=== PATIENT | male | born 1960 | race Caucasian/White ===

== ENCOUNTER 2019-10-02 09:32 | Inpatient (IN) | payer MEDICAID, OTHER ==
[~2019-10-02] VITALS: Ht 172.7 cm; Wt 94.8 kg
--- NOTE | 2019-10-02 09:35 | NUR ---
Dr. Conde at bedside for MSE
[2019-10-02 10:02] LABS: BASOPHILS # (AUTO) 0.1 K/uL (0.0-8.0); BASOPHILS % (AUTO) 0.9 % (0.0-2.0); EOSINOPHILS # (AUTO) 0.2 K/uL (0.0-0.7); EOSINOPHILS % (AUTO) 1.9 % (0.0-7.0); HEMOGLOBIN 15.4 g/dL (12.5-16.3); LYMPHOCYTES % (AUTO) 21.7 % (20.5-51.5); MEAN CORPUSCULAR HEMOGLOBIN 33.5 uug (23.8-33.4); MEAN CORPUSCULAR HGB CONC 34 g/dL (32.5-36.3); MEAN CORPUSCULAR VOLUME 97.7 fL (73.0-96.2); MONOCYTES # (AUTO) 1.2 K/uL (2.0-10.0); MONOCYTES % (AUTO) 12.7 % (0.0-11.0); NEUTROPHILS # (AUTO) 5.9 K/uL (1.8-8.9); NEUTROPHILS % (AUTO) 62.8 % (38.5-71.5); PLATELET COUNT (AUTO) 81 K/uL (152-348); WHITE BLOOD COUNT (AUTO) 9.3 K/uL (3.6-10.2)
[2019-10-02] MEDS ORDERED: BUPR-51 PO (10:02)
[2019-10-02] MEDS ORDERED: INSU100I26 SQ (10:02)
[2019-10-02] MEDS ORDERED: SPIR100T5 PO (10:02)
[2019-10-02] MEDS ORDERED: DEXA4TAB PO (10:02)
[2019-10-02] MEDS ORDERED: ASCO500C18 PO (10:02)
[2019-10-02] MEDS ORDERED: CYAN100T44 PO (10:02)
[2019-10-02] MEDS ORDERED: NITR50CA PO (10:02)
[2019-10-02] MEDS ORDERED: CHOL10002 PO (10:02)
[2019-10-02] MEDS ORDERED: ZINC1CAP2 PO (10:02)
[2019-10-02] MEDS ORDERED: ALBU0.63 IH (10:02)
[2019-10-02 10:09] LABS: *BILIRUBIN,URIN NEGATIVE (NEGATIVE); *CLARITY,URINE CLEAR (CLEAR); *COLOR,URINE YELLOW (YELLOW); *KETONES,URINE NEGATIVE (NEGATIVE); *UROBILINOGEN,URINE 0.2 E.U./dl (NORMAL); LEUKOCYTE ESTERASE ,URINE NEGATIVE (NEGATIVE); NITRITE, URINE NEGATIVE (NEGATIVE); PH,URINE 5.5 (5.0-8.0)
[2019-10-02 10:13] LABS: *BLOOD, URINE TRACE (NEGATIVE); UGLUCOSE 2+ (NEGATIVE)
[2019-10-02 10:14] LABS: BILIRUBIN,TOTAL 2.6 mg/dL (0.2-1.0); CREATININE 1.2 mg/dL (0.6-1.3); POTASSIUM 5.1 mmol/L (3.5-5.1); TOTAL PROTEIN, SERUM 6.6 g/dL (6.4-8.2)
--- NOTE | 2019-10-02 11:10 | NUR ---
Radiologist Dr. Collins at bedside to do procedure
--- NOTE | 2019-10-02 11:55 | NUR ---
Patient tolerated procedure well. Able to aspirate 4200ml of yellow cloudy fluid. Patient states "I feel much better". Denies any pain or discomfort at this time. no bleeding noted around the site.
[2019-10-02] MEDS ORDERED: CEFTRIAXONE 1 G VIAL IM ONE (12:30)
[2019-10-02] MEDS ORDERED: CEFTRIAXONE /D5W 50ML IVPB **ER PYXIS IV ONE (12:30)
[2019-10-02] MEDS ORDERED: IV NS 1000 ML 1,000 ML IV ONE (12:30)
[2019-10-02 12:44] LABS: BACTERIA,URINE NONE SEEN /HPF (NONE SEEN); RBC,URINE 0-3 /HPF (0-3); SQUAMOUS EPITHELIAL CELL,UR FEW /HPF (NONE SEEN); WBC,URINE 0-3 /HPF (0-3)
[2019-10-02] MEDS ORDERED: DEXTROSE 50% 50 ML DISP.SYRIN IV PRN (15:30)
[2019-10-02] MEDS ORDERED: MORPHINE SULFATE 2 MG/1 ML DISP.SYRIN IV PRN (15:30)
[2019-10-02] MEDS ORDERED: ONDANSETRON 4 MG/2 ML VIAL IV PRN (15:30)
[2019-10-02] MEDS ORDERED: MAGNESIUM HYDROXIDE 30 ML LIQUID UDC PO PRN (15:30)
[2019-10-02] MEDS ORDERED: TEMAZEPAM 7.5 MG CAPSULE PO PRN (17:00)
[2019-10-02 17:05] VITALS: BP 130/85
--- NOTE | 2019-10-02 17:05 | NUR ---
Pt admitted to [facility] from ER with DX of Ascites, awake AOx4, on RA with no SOB or distress noted at this time. Pt stated feels a lot better after paracentesis in the ER. On tele SR, runs ST when eating, denies chest pain. IV on left AC 18g flushed and patent. Abdomen soft. Ambulates to bathroom, notice slight tremor on legs and pt stated that it's chronic. Oriented to room and unit policy. Call light and phone within reach. Bed locked on lowest position with siderails 2x up.
[2019-10-02] MEDS: BLOOD SUGAR DIAGNOSTIC 1 EACH STRIP VI SCH ×2 (17:34→20:27)
[2019-10-02] MEDS: CYANOCOBALAMIN 100 MCG TABLET PO SCH (17:34)
[2019-10-02] MEDS: INSULIN REGULAR, HUMAN 300 UNIT/3 ML VIAL SQ PRN ×2 (17:36→20:28)
[2019-10-02 20:00] VITALS: BP 103/65
[2019-10-02] MEDS: INSULIN GLARGINE,HUM 300 UNITS/3 ML CARTRIDGE SQ SCH (20:29)
[2019-10-02] MEDS: ZOLPIDEM 5 MG TABLET PO PRN (21:00)
--- NOTE | 2019-10-03 01:10 | NUR ---
Resting in bed upon initial rounds. AAOx4 No acute distress noted. Admitted for ascites. Abdomen slightly distended. Accucheck @ 2100 259, given 6units as coverage. Denies any pain nor any discomfort. Tolerated po meds well. Patient on telemetry, Sinus rhythm on the monitor, HR 98. Kept comfortable. Will monitor patient.Voiding freely.
[2019-10-03 04:00] VITALS: BP 117/67
[2019-10-03] MEDS: PANTOPRAZOLE SODIUM 40 MG TABLET.DR PO SCH (06:10)
[2019-10-03] MEDS: BLOOD SUGAR DIAGNOSTIC 1 EACH STRIP VI SCH ×4 (06:33→20:34)
--- NOTE | 2019-10-03 06:39 | NUR ---
End of shift notes: Slept well throughout the night. On ekg monitor tech, patient on sinus rhythm. Denies any chestpains nor any chest discomfort noted. Accucheck @ 0600 was 184. VSS Needs attended. Voiding well.
[2019-10-03 06:58] LABS: BASOPHILS # (AUTO) 0.1 K/uL (0.0-8.0); BASOPHILS % (AUTO) 0.9 % (0.0-2.0); EOSINOPHILS # (AUTO) 0.2 K/uL (0.0-0.7); EOSINOPHILS % (AUTO) 2.8 % (0.0-7.0); HEMATOCRIT 43.2 % (36.7-47.1); HEMOGLOBIN 14.9 g/dL (12.5-16.3); LYMPHOCYTES # (AUTO) 2.5 K/uL (20.0-40.0); LYMPHOCYTES % (AUTO) 28.8 % (20.5-51.5); MEAN CORPUSCULAR HGB CONC 35 g/dL (32.5-36.3); MEAN CORPUSCULAR VOLUME 98.3 fL (73.0-96.2); MONOCYTES % (AUTO) 11.5 % (0.0-11.0); NEUTROPHILS # (AUTO) 4.9 K/uL (1.8-8.9); PLATELET COUNT (AUTO) 68 K/uL (152-348); RED BLOOD CELL COUNT(AUTO) 4.39 MIL/uL (4.06-5.63); WHITE BLOOD COUNT (AUTO) 8.7 K/uL (3.6-10.2)
[2019-10-03 07:13] LABS: BILIRUBIN,TOTAL 2.6 mg/dL (0.2-1.0); MAGNESIUM 1.5 mg/dL (1.8-2.4); PHOSPHOROUS 3.2 mg/dL (2.5-4.9); POTASSIUM 4.7 mmol/L (3.5-5.1); TOTAL PROTEIN, SERUM 5.8 g/dL (6.4-8.2)
[2019-10-03 07:51] LABS: THYROID STIMULATING HORMONE 2.358 mIU/mL (0.358-3.740)
[2019-10-03] MEDS: CYANOCOBALAMIN 100 MCG TABLET PO SCH ×2 (08:41→16:50)
[2019-10-03] MEDS: ZINC SULFATE 220 MG CAPSULE PO SCH (08:41)
[2019-10-03] MEDS: buPROPion XL 150 MG TAB.SR.24H PO SCH (08:41)
[2019-10-03] MEDS: MAGNESIUM OXIDE 400 MG TABLET PO SCH ×2 (08:41→16:50)
[2019-10-03] MEDS: FUROSEMIDE 40 MG TABLET PO SCH (08:41)
[2019-10-03] MEDS: SPIRONOLACTONE 50 MG TABLET PO SCH (08:41)
[2019-10-03] MEDS: ASCORBIC ACID 500 MG TABLET PO SCH (08:42)
[2019-10-03] MEDS: CHOLECALCIFEROL 1,000 UNIT TABLET PO SCH (08:42)
[2019-10-03] MEDS: INSULIN REGULAR, HUMAN 300 UNIT/3 ML VIAL SQ PRN ×4 (08:46→20:31)
[2019-10-03] MEDS ORDERED: SPIRONOLACTONE 100 MG TABLET PO SCH (09:00)
[2019-10-03] MEDS: CEFTRIAXONE 2 G in IV DEXTROSE 5% 100 ML IV SCH (11:59)
[2019-10-03 12:00] VITALS: BP 101/67
[2019-10-03] MEDS: LORAZEPAM 2 MG/1 ML VIAL IV PRN (16:46)
[2019-10-03 16:57] VITALS: BP 110/70
--- NOTE | 2019-10-03 19:30 | NUR ---
Received patient lying in bed. Asleep, but easily arouse to verbal stimuli. AOx4. In no acute distress. Denies any pain or SOB at this time. SR on tele with occasional PVC's at 95/min. IV site on left FA intact and patent. Safety measure initiated and call lozada within reached.
[2019-10-03 20:09] VITALS: BP 105/53
[2019-10-03] MEDS: INSULIN GLARGINE,HUM 300 UNITS/3 ML CARTRIDGE SQ SCH (20:32)
[2019-10-03] MEDS: ZOLPIDEM 5 MG TABLET PO PRN (21:56)
[2019-10-04 00:02] VITALS: BP 122/80
[2019-10-04 04:50] VITALS: BP 117/77
[2019-10-04] MEDS: PANTOPRAZOLE SODIUM 40 MG TABLET.DR PO SCH (06:12)
--- NOTE | 2019-10-04 06:42 | NUR ---
Patient slept well last night after Ambien provided. Remains AOx4. In no acute distress. Denies any pain or SOB. Sinus tachy on tele with occasional PVC's at 106/min. IV site on left FA intact and patent. Needs attended to and met. Safety measure maintained and call lozada within reached.
[2019-10-04 06:43] LABS: BASOPHILS # (AUTO) 0.1 K/uL (0.0-8.0); BASOPHILS % (AUTO) 1.4 % (0.0-2.0); EOSINOPHILS # (AUTO) 0.2 K/uL (0.0-0.7); EOSINOPHILS % (AUTO) 2.1 % (0.0-7.0); HEMATOCRIT 43.9 % (36.7-47.1); HEMOGLOBIN 14.9 g/dL (12.5-16.3); LYMPHOCYTES # (AUTO) 2.3 K/uL (20.0-40.0); LYMPHOCYTES % (AUTO) 26.1 % (20.5-51.5); MEAN CORPUSCULAR HEMOGLOBIN 33.7 uug (23.8-33.4); MEAN CORPUSCULAR HGB CONC 34 g/dL (32.5-36.3); MONOCYTES % (AUTO) 10.9 % (0.0-11.0); NEUTROPHILS # (AUTO) 5.2 K/uL (1.8-8.9); NEUTROPHILS % (AUTO) 59.5 % (38.5-71.5); PLATELET COUNT (AUTO) 74 K/uL (152-348); RED BLOOD CELL COUNT(AUTO) 4.44 MIL/uL (4.06-5.63); WHITE BLOOD COUNT (AUTO) 8.8 K/uL (3.6-10.2)
[2019-10-04] MEDS: BLOOD SUGAR DIAGNOSTIC 1 EACH STRIP VI SCH ×2 (06:44→11:53)
[2019-10-04 06:47] LABS: BILIRUBIN,TOTAL 1.6 mg/dL (0.2-1.0); CREATININE 0.9 mg/dL (0.6-1.3); MAGNESIUM 1.6 mg/dL (1.8-2.4); PHOSPHOROUS 3.1 mg/dL (2.5-4.9); POTASSIUM 5.2 mmol/L (3.5-5.1); URIC ACID 2.8 mg/dL (3.5-7.2)
[2019-10-04 07:30] VITALS: BP 99/70
[2019-10-04] MEDS: ZINC SULFATE 220 MG CAPSULE PO SCH (07:47)
[2019-10-04] MEDS: INSULIN REGULAR, HUMAN 300 UNIT/3 ML VIAL SQ PRN ×2 (07:52→11:54)
[2019-10-04] MEDS: MAGNESIUM OXIDE 400 MG TABLET PO SCH (07:54)
[2019-10-04] MEDS: buPROPion XL 150 MG TAB.SR.24H PO SCH (07:54)
[2019-10-04] MEDS: ASCORBIC ACID 500 MG TABLET PO SCH (07:54)
[2019-10-04] MEDS: CHOLECALCIFEROL 1,000 UNIT TABLET PO SCH (07:54)
[2019-10-04] MEDS: SPIRONOLACTONE 50 MG TABLET PO SCH (07:54)
[2019-10-04] MEDS: FUROSEMIDE 40 MG TABLET PO SCH (07:55)
[2019-10-04] MEDS: CYANOCOBALAMIN 100 MCG TABLET PO SCH (07:55)
--- NOTE | 2019-10-04 08:00 | NUR ---
received pt. resting in bed alert oriented x4. pt. denies pain/ discomfort. pt. denies sob/ difficulty breathing. IV intact on L forearm 18 gauge saline lock. safety measures in place. call light within reach. will continue to monitor pt.
[2019-10-04] MEDS: LORAZEPAM 2 MG/1 ML VIAL IV PRN (08:02)
[2019-10-04] MEDS ORDERED: INSULIN GLARGINE,HUM 300 UNITS/3 ML CARTRIDGE SQ SCH ×2 (09:00→09:15)
[2019-10-04] MEDS ORDERED: LACTULOSE 20 G/30 ML LIQUID UDC PO SCH (09:15)
[2019-10-04] MEDS ORDERED: PROTEIN SUPPLEMENT (PROSTAT) 30 ML LIQUID PO SCH (09:15)
[2019-10-04] MEDS ORDERED: MAGNESIUM OXIDE 400 MG TABLET PO ONE (09:15)
[2019-10-04 10:20] LABS: NEUTROPHILS % (MANUAL) 73 % (42-75)
[2019-10-04 10:21] LABS: LYMPHOCYTES % (MANUAL) 14 % (20-40); MONOCYTES % (MANUAL) 13 % (2-10)
[2019-10-04] MEDS: CEFTRIAXONE 2 G in IV DEXTROSE 5% 100 ML IV SCH (11:50)
[2019-10-04] MEDS ORDERED: SPIR50TA PO (13:34)
[2019-10-04] MEDS ORDERED: ZINC1CAP2 PO (13:34)
[2019-10-04] MEDS ORDERED: PROT30LI PO (13:34)
[2019-10-04] MEDS ORDERED: ALBU8.5H8 INH (13:34)
[2019-10-04] MEDS ORDERED: FURO-152 PO (13:34)
[2019-10-04] MEDS ORDERED: FAMO-132 PO (13:34)
--- NOTE | 2019-10-04 14:44 | NUR ---
spoke to assistant case manager and social worker masters. pt. is homeless and will be discharged home self-care back to [facility] where he resides temporarily. IV removed. ID band removed. homeless packet given and waiver signed by pt. pt. requesting a jacket will check to see if jacket available. pt. needs transportation to [facility]. pt. also was given meal before discharge. pt. is stable.
--- NOTE | 2019-10-04 15:21 | NUR ---
pt. is wanting to use his own ub[employer] instead of car provided by [facility] [employer] so that he can arrive at [facility] sooner.
[2019-10-04] MEDS ORDERED: MAGNESIUM OXIDE 400 MG TABLET PO SCH (21:00)
== END 2019-10-04 15:40 | disposition home or self-care (01) | DRG 280 ==
LOC: ER 09:32 → TELE3 16:47 → MEDSURG3 10-04 08:41
PROVIDERS: ADMIT Internal Medicine; ATTEND Internal Medicine
PROC: 0W9G3ZZ Drainage of Peritoneal Cavity, Percutaneous Approach (ICD-10-PCS; principal; 2019-10-02)
DX: K70.31 Alcoholic cirrhosis of liver with ascites (principal); E87.1 Hypo-osmolality and hyponatremia; D69.59 Other secondary thrombocytopenia; E72.20 Disorder of urea cycle metabolism, unspecified; D75.89 Other specified diseases of blood and blood-forming organs; E11.65 Type 2 diabetes mellitus with hyperglycemia; E43 Unspecified severe protein-calorie malnutrition; E66.9 Obesity, unspecified; F17.210 Nicotine dependence, cigarettes, uncomplicated; F32.9 Major depressive disorder, single episode, unspecified; F41.9 Anxiety disorder, unspecified; I25.10 Atherosclerotic heart disease of native coronary artery without angina pectoris; Z59.0 Homelessness; Z86.19 Personal history of other infectious and parasitic diseases; R74.0 Nonspecific elevation of levels of transaminase and lactic acid dehydrogenase [LDH]; E80.6 Other disorders of bilirubin metabolism; Z79.4 Long term (current) use of insulin; E87.70 Fluid overload, unspecified; Z68.31 Body mass index [BMI] 31.0-31.9, adult; K65.2 Spontaneous bacterial peritonitis
CPT/HCPCS: 36415; 49083; 70030-TC; 71045; 83615; 83690; 83735; 84100; 84443; 84550; 85025; 85730; 86803; 87070; 87205; 87806; 93005; A4663; G0378; J0696; J1815; J2060; J3490; J7030; J7060

== ENCOUNTER 2019-10-17 13:17 | Emergency (ER) | payer OTHER ==
[~2019-10-17] VITALS: Ht 172.7 cm; Wt 113.4 kg
[~2019-10-17 13:17] MED LIST: ALBU8.5H8 INH; ASCO500C18 PO; BUPR-51 PO; CHOL10002 PO; CYAN100T44 PO; FAMO-132 PO; FURO-152 PO; INSU100I26 SQ; PROT30LI PO; SPIR50TA PO; ZINC1CAP2 PO
--- NOTE | 2019-10-17 14:09 | NUR ---
Patient is resting comfortably on gurney with eyes closed, NAD, respiration:easy
[2019-10-17 14:25] LABS: BASOPHILS # (AUTO) 0.1 K/uL (0.0-8.0); BASOPHILS % (AUTO) 0.9 % (0.0-2.0); EOSINOPHILS # (AUTO) 0.1 K/uL (0.0-0.7); EOSINOPHILS % (AUTO) 1.3 % (0.0-7.0); HEMATOCRIT 41.5 % (36.7-47.1); HEMOGLOBIN 14.2 g/dL (12.5-16.3); LYMPHOCYTES # (AUTO) 1.9 K/uL (20.0-40.0); LYMPHOCYTES % (AUTO) 23.8 % (20.5-51.5); MEAN CORPUSCULAR HEMOGLOBIN 33.7 uug (23.8-33.4); MEAN CORPUSCULAR HGB CONC 34 g/dL (32.5-36.3); MEAN CORPUSCULAR VOLUME 98.7 fL (73.0-96.2); MONOCYTES % (AUTO) 12.7 % (0.0-11.0); NEUTROPHILS % (AUTO) 61.3 % (38.5-71.5); PLATELET COUNT (AUTO) 116 K/uL (152-348); WHITE BLOOD COUNT (AUTO) 8.1 K/uL (3.6-10.2)
[2019-10-17 14:26] LABS: CREATININE 1.1 mg/dL (0.6-1.3); POTASSIUM 4.3 mmol/L (3.5-5.1)
[2019-10-17 14:32] LABS: BILIRUBIN,DIRECT 0.5 mg/dL (0.0-0.2); BILIRUBIN,TOTAL 1.3 mg/dL (0.2-1.0); TOTAL PROTEIN, SERUM 6.1 g/dL (6.4-8.2)
[2019-10-17 14:52] LABS: *BILIRUBIN,URIN NEGATIVE (NEGATIVE); *BLOOD, URINE NEGATIVE (NEGATIVE); *CLARITY,URINE CLEAR (CLEAR); *COLOR,URINE YELLOW (YELLOW); *KETONES,URINE NEGATIVE (NEGATIVE); *UROBILINOGEN,URINE 0.2 E.U./dl (NORMAL); LEUKOCYTE ESTERASE ,URINE NEGATIVE (NEGATIVE); NITRITE, URINE NEGATIVE (NEGATIVE); PH,URINE 5.5 (5.0-8.0); UGLUCOSE NEGATIVE (NEGATIVE)
[2019-10-17] MEDS ORDERED: LIDOCAINE HCL 1% 20 ML VIAL ONE (15:23)
[2019-10-17] MEDS: LIDOCAINE HCL 1% 20 ML VIAL IJ ONE (15:45)
--- NOTE | 2019-10-17 15:59 | NUR ---
Patient is ambulatory with steady gait. Patient refuses offer of custodial placement@this time. Patient said that he is going back to [facility], a temporary custodial for homeless persons. Patient was given a list of available shelters in surrounding area.
--- NOTE | 2019-10-17 16:00 | NUR ---
Patient discharged to home in stable condition with steady gait. Written and verbal after care instructions given to patient. Patient verbalizes understanding of instructions. Stressed follow up with his liver doctor or return to ER for worsening s/s.
== END 2019-10-17 16:04 | disposition home or self-care (01) ==
LOC: ER 13:19
DX: R18.8 Other ascites (principal); K72.90 Hepatic failure, unspecified without coma; R00.0 Tachycardia, unspecified; Z79.899 Other long term (current) drug therapy; Z86.19 Personal history of other infectious and parasitic diseases; K74.60 Unspecified cirrhosis of liver; Z59.0 Homelessness
CPT/HCPCS: 36415; 49083; 70450; 71045; 80048; 80076; 81001; 82140; 85025; 85730; 93005; 99285; J3490; A4663